=== PATIENT | male | born 1940 | race Caucasian/White ===

== ENCOUNTER 2024-11-14 15:03 | Emergency (ER) | payer MEDICARE, SELFPAY ==
[2024-11-14] VITALS (7 sets, daily range): BP systolic 102–132; BP diastolic 57–70; PULSE 65–82; RESP 16–18; TEMP 36.5–36.6; O2SAT 95–98; BMI 29.1
--- NOTE | 2024-11-14 15:10 | ECG_ITS ---
APPROVED REPORT Exam: Resting ECG HR:86 bpm ECG Measurements Heart Rate 86 AXES ID 225 P 96 QRSd 98 QRS -46 QT 410 T 31 QTc 454 Conclusion ELECTRONIC ATRIAL PACEMAKER LEFT AXIS DEVIATION [QRS AXIS < -30] ANTEROSEPTAL MYOCARDIAL INFARCTION , OF INDETERMINATE AGE [40+ ms Q WAVE IN V1-V4] No STEMI Electronically signed by : AKUA ALVARADO, 11/15/2024 06:54:59
--- NOTE | 2024-11-14 15:35 | HMH.EDGENADL ---
Discharge Plan Disposition Chief Complaint: Dizziness Referrals Follow up/Referrals: Patrizia Franco DO [Primary Care Provider] - See instructions Activity Restrictions/Add. Instructions Additional Instructions/Restrictions: At this time it was felt you are safe to be discharged home. If new or worsening symptoms please do not hesitate to return the emergency department. Please continue to follow-up with your family doctor as discussed. It was not thought today that you were having a big stroke in the back your brain which is good news. Clinical Impressions Clinical Impression: Vertigo Print Language Print Language: [place] Discharge ED Provider: Cristhian Briones General Adult HPI General Chief complaint: Dizziness Stated complaint: Dizziness and Confusion Time Seen by Provider: 11/14/24 15:26 Mode of Arrival: Ambulatory Source of Information: Patient and Spouse Description of Symptoms (Recalled from ER Triage Doc. by RN): Pt states during lunch he began to feel dizzy and confused, this occurred 1 hour [employer]IT[employer] DIRECT[employer] (1420) Pt states he had to brace himself against the car and bumped his head on the car. Pt is on xarelto but did not have LOC. Pt states he has a hx of vertigo, and has been having changes to his heart medications. Pt is on xarelto. FSBS 150, pt is gcs 15 History of Present Illness HPI narrative: Patient is a 84-year-old male with past medical history of [id number] diabetes, hyperlipidemia, vitamin D deficiency, COPD, mood disorder, atrial paced on rivaroxaban, metoprolol, Lasix who presents emergency department for evaluation dizziness. Patient has had dizziness over the last 2 years and PCP recently took him off of some of his spironolactone and Jardiance last week and has had some improvement of his symptoms however he thinks he took his medication this morning inadvertently out of habit and had resurgence of his dizziness. He was shopping when he collapsed in the bathroom, denies hitting his head or true loss of consciousness rather it was from weakness and he presents here for continued evaluation. Patient is complaining of dizziness and nausea no reports of chest pain, no other acute complaints at this time. Please note that above description of symptoms, in this electronic medical record under categorization of recalled from ER triage doctor by RN are reflective of an initial nursing assessment, however, is not reflective of my full history and physical exam that was personally taken and clarified. Consequentially, this preceding description of symptoms, which may include the patient's categorized chief complaint in the EMR, do not reflect my personal clinical impression, and the ultimate description of history of present illness and patient stated complaints should be deferred to this section of the note. Unless stated otherwise or congruent with this section of the note, additional signs, symptoms, or incongruence should be interpreted as inaccurate with my clinical impression. Related Data Allergies Allergy/AdvReac Type Severity Reaction Status Date / Time gabapentin Allergy Verified 11/14/24 17:49 hydromorphone Allergy Verified 11/14/24 17:49 melatonin Allergy Verified 11/14/24 17:49 meloxicam Allergy Verified 11/14/24 17:49 PFSH [facility] Disclaimer: The information contained in this section may have been updated after the patient was seen, as this information can be updated by other users. Social History Smoking Status: Former smoker alcohol intake: never current occupational status: other Travel in the last 8 weeks?: None ROS Obtained: Yes Systems reviewed as appropriate & no additional complaints except as documented Physical Exam General General appearance: alert and in no apparent distress Head Head exam: atraumatic and normocephalic Eye Eye exam: Present PERRL and EOMI ENT ENT exam: Present mucous membranes moist Neck Neck exam: Present normal inspection Chest Chest inspection: Present normal inspection and symmetric chest wall rise Respiratory Respiratory exam: Present normal lung sounds bilaterally; Absent respiratory distress Cardiovascular Cardiovascular exam: Present regular rate and normal rhythm Abdominal Exam Abdominal exam: Present soft; Absent tenderness Extremities Exam Extremities exam: Present normal inspection Neurological Exam Neurological exam: Present alert, oriented X3 and CN II-XII intact; Absent motor sensory deficit Psychiatric Psychiatric exam: Present normal affect Skin Skin exam: Present warm and dry Medical Decision Making Medical Records Screening: Per USPSTF and CDC recommendations, given the prevalence of disease in our region, it is our hospital?s policy to screen for HIV and viral Hepatitis for all patients aged 18 and over and those with ongoing risk factors. Efrain Inquiry Pt receiving controlled substance: No Vital Signs: 11/14/24 15:17 11/14/24 15:19 11/14/24 15:30 Temperature 97.7 F Temperature Source Oral Pulse Rate 82 75 Pulse Rate [Right] 77 Respiratory Rate 18 Blood Pressure 109/68 L 112/61 Blood Pressure [Right Arm] 102/57 L Blood Pressure Mean Blood Pressure Mean [Right Arm] 72 Blood Pressure Source [Right Arm] Automatic Cuff Blood Pressure Position [Right Arm] Sitting 02 Sat by Pulse Oximetry 95 98 96 Oxygen Delivery Method Room Air Room Air Room Air 11/14/24 16:00 11/14/24 16:30 11/14/24 17:00 Temperature Temperature Source Pulse Rate 78 70 65 Pulse Rate [Right] Respiratory Rate 18 18 Blood Pressure 115/64 125/69 122/66 Blood Pressure [Right Arm] Blood Pressure Mean 83 86 Blood Pressure Mean [Right Arm] Blood Pressure Source [Right Arm] Blood Pressure Position [Right Arm] 02 Sat by Pulse Oximetry 96 95 95 Oxygen Delivery Method Room Air Lab Data Lab Results 11/14/24 15:20: WBC 7.8, RBC 4.48 L, Hgb 14.4, Hct 42.1, MCV 94.0, MCH 32.1 H, MCHC 34.2, RDW 12.5, Plt Count 171, MPV 12.3 H, Neut % (Auto) 68.7, Lymph % (Auto) 20.4, [place] % (Auto) 8.0, Eos % (Auto) 2.3, Baso % (Auto) 0.3, Neut # (Auto) 5.3, Lymph # (Auto) 1.6, [place] # (Auto) 0.6, Eos # (Auto) 0.2, Baso # (Auto) 0.0, Sodium 137, Potassium 3.6, Chloride 109 H, Carbon Dioxide 23, Anion Gap 8.6, BUN 19, Creatinine 1.30 H, Estimated Creat Clear 56, Estimated GFR 52 L, Est GFR ( Amer) 63, Glucose 152 H, Calcium 9.2, Magnesium 1.8, Total Bilirubin 0.7, AST 36, ALT 26, Alkaline Phosphatase 98, Total Protein 6.7, Albumin 4.1, Globulin 2.6, Albumin/Globulin Ratio 1.6 11/14/24 15:20 11/14/24 15:20 Orders (Tests/Meds): ED MEDICATIONS Discontinued Medications Generic Name Dose Route Start Last Admin Trade Name Freq PRN Reason Stop Dose Admin Iopamidol 80 ml 11/14/24 17:26 11/14/24 17:27 Iopamidol-370 (76%);100ml Bottle IV 11/14/24 17:27 80 ml ONCE ONE Administration Sodium Chloride 50 ml 11/14/24 17:26 11/14/24 17:26 0.9 % Sodium Chloride 50 Ml Vial IV 11/14/24 17:27 50 ml ONCE ONE Administration Sodium Chloride 10 ml 11/14/24 17:26 11/14/24 17:26 Sodium Chloride 0.9% 10ml Syr (Rad Only) IV 11/14/24 17:27 10 ml ONCE ONE Administration ORDERS Category Date Time Status CT angio head Stat Cat Scan 11/14/24 15:[address] angio neck Stat Cat Scan 11/14/24 15:[address] head/brain wo con Stat Cat Scan 11/14/24 15:48 Completed CBC w/Auto Diff [Complete Blood Count Auto Diff] Stat Lab 11/14/24 15:20 Completed CMP [Comprehensive Metabolic Panel] Stat Lab 11/14/24 15:20 Completed MG [Magnesium] Stat Lab 11/14/24 15:20 Completed ECG Data Tracing #1: Independently inter by me rate is 86, rhythm is atrial paced, no ST elevation in anatomical contiguous leads, QTc 454. Medical Decision Narrative: In summary patient is a 84-year-old male with past medical history described below who presents emergency department for evaluation of acute on chronic vertigo. Patient is hemodynamically stable nontoxic-appearing upon arrival, afebrile. Nonfocal neurologic exam differential diagnosis includes posterior circulation stroke, electrolyte abnormality, chronic vertigo, medication side effect, among others. Workup we conducted with hematologic labs, noncontrasted CT scan of the head, CT of the head and neck, EKG. Initial workup reviewed by me, hematologic labs are nonactionable no significant leukocytosis or anemia no IRAJ although mildly elevated creatinine no critical electrolyte abnormality. Noncontrasted CT scan of the head informally visualized by me no acute large intracranial hemorrhage. Formal read shows mild bilateral ICA stenosis. Given the chronicity of his vertigo and that it is similar nature and the fact that patient is ambulatory I significantly doubt posterior circulation stroke. Given this patient is appropriate for discharge at this time will continue to follow-up on an outpatient basis with his family doctor. Critical Care Critical Care Time Critical Care Time: No
--- NOTE | 2024-11-14 15:48 | CT_ITS ---
PROCEDURE INFORMATION: Exam: CTA Head With Contrast, Arteriography Exam date and time: 11/14/2024 5:40 PM Age: 84 years old Clinical indication: Other: Vertigo collapse and vertigo TECHNIQUE: Imaging protocol: Computed tomographic angiography of the head with contrast. Exam focused on the arteries. 3D rendering (Not supervised by radiologist): MIP and/or 3D reconstructed images were created by the technologist. Radiation optimization: All CT scans at this facility use at least one of these dose optimization techniques: automated exposure control; mA and/or kV adjustment per patient size (includes targeted exams where dose is matched to clinical indication); or iterative reconstruction. Contrast material: ISO 370; Contrast volume: 80 ml; Contrast route: INTRAVENOUS (IV); COMPARISON: CT HEAD/BRAIN WO CON 11/14/2024 5:38 PM FINDINGS: ANTERIOR CIRCULATION: Right internal carotid artery: Mild atherosclerotic narrowing of the intracranial segment without flow-limiting stenosis. No aneurysm. Right middle cerebral artery: No occlusion or significant stenosis. No aneurysm. Right anterior cerebral artery: No occlusion or significant stenosis. No aneurysm. Left internal carotid artery: Mild atherosclerotic narrowing of the intracranial segment without flow-limiting stenosis. No aneurysm. Left middle cerebral artery: No occlusion or significant stenosis. No aneurysm. Left anterior cerebral artery: No occlusion or significant stenosis. No aneurysm. POSTERIOR CIRCULATION: Right vertebral artery: No occlusion or significant stenosis. No aneurysm. Left vertebral artery: No occlusion or significant stenosis. No aneurysm. Basilar artery: No occlusion or significant stenosis. No aneurysm. Right posterior cerebral artery: origin. No occlusion or significant stenosis. No aneurysm. Left posterior cerebral artery: No occlusion or significant stenosis. No aneurysm. Brain: No definite mass, mass effect, or midline shift. Cerebral ventricles: No ventriculomegaly. Bones/joints: Unremarkable. No acute fracture. Soft tissues: Unremarkable. IMPRESSION: No large vessel stenosis or occlusion. PROCEDURE INFORMATION: Exam: CTA Neck With Contrast Exam date and time: 11/14/2024 5:40 PM Age: 84 years old Clinical indication: Other: Vertigo collapse and vertigo TECHNIQUE: Imaging protocol: Computed tomographic angiography of the neck with contrast. Exam focused on the cervical segments of the vasculature. 3D rendering (Not supervised by radiologist): MIP and/or 3D reconstructed images were created by the technologist. Radiation optimization: All CT scans at this facility use at least one of these dose optimization techniques: automated exposure control; mA and/or kV adjustment per patient size (includes targeted exams where dose is matched to clinical indication); or iterative reconstruction. Contrast material: ISO 370; Contrast volume: 80 ml; Contrast route: INTRAVENOUS (IV); COMPARISON: CT HEAD/BRAIN WO CON 11/14/2024 5:38 PM FINDINGS: Right common carotid artery: Mild atherosclerosis at the carotid bulb without significant stenosis. No dissection or occlusion. Right internal carotid artery: Mild stenosis at the origin. No dissection or occlusion. Right external carotid artery: No occlusion or stenosis of the origin. Left common carotid artery: Mild atherosclerosis at the carotid bulb without significant stenosis. No dissection or occlusion. Left internal carotid artery: Mild stenosis at the origin. No dissection or occlusion. Left external carotid artery: Mild atherosclerosis of the origin without significant stenosis. Right vertebral artery: No stenosis. No dissection or occlusion. Left vertebral artery: No stenosis. No dissection or occlusion. Lymph nodes: Calcified mediastinal lymph nodes. Soft tissues: Normal. No significant soft tissue swelling. Bones/joints: No acute fracture. C3-T1 posterior cervical fusion. Lungs: Atelectasis. Left lung granulomatous scarring. Calcified granulomas. IMPRESSION: Mild bilateral internal carotid artery origin stenosis. REFERENCES: NASCET CRITERIA. The degree of stenosis in the cervical segment of the internal carotid artery is based on NASCET criteria. Normal is no stenosis. Mild is less than 50% stenosis. Moderate is 50-69% stenosis. Severe is 70% to 99% stenosis. Total occlusion is no detectable patent lumen.
--- NOTE | 2024-11-14 15:48 | CT_ITS ---
PROCEDURE INFORMATION: Exam: CT Head Without Contrast Exam date and time: 11/14/2024 5:38 PM Age: 84 years old Clinical indication: Other: Vertigo collapse TECHNIQUE: Imaging protocol: Computed tomography of the head without contrast. Radiation optimization: All CT scans at this facility use at least one of these dose optimization techniques: automated exposure control; mA and/or kV adjustment per patient size (includes targeted exams where dose is matched to clinical indication); or iterative reconstruction. COMPARISON: No relevant prior studies available. FINDINGS: Brain: No acute intracranial hemorrhage, midline shift, or mass effect. Diffuse brain parenchymal volume loss. Mild hypodensities within the cerebral white matter most consistent with chronic small-vessel ischemic changes. Cerebral ventricles: No ventriculomegaly. Paranasal sinuses: Mild ethmoid sinus mucosal thickening. Small right maxillary sinus mucous retention cyst. Mastoid air cells: Visualized mastoid air cells are well aerated. Bones: Unremarkable. No acute fracture. Soft tissues: Unremarkable. IMPRESSION: No acute intracranial findings.
[2024-11-14 15:56] LABS: Basophils % 0.3 % (0.1-2.0); Eosinophils # 0.2 Kmm3 (0.0-0.4); Eosinophils % 2.3 % (0.1-12.0); Hematocrit 42.1 % (42.0-52.0); Hemoglobin 14.4 g/dL (14.1-18.0); Immature Granulocytes # 0.02 10^3uL; Immature Granulocytes % 0.3 %; Lymphocytes # 1.6 K/mm3 (0.7-4.5); Lymphocytes % 20.4 % (10-50); Mean Corpuscular HGB Conc 34.2 g/dL (31.8-35.4); Mean Corpuscular Hemoglobin 32.1 pg (27.0-31.2); Mean Platelet Volume 12.3 fl (7.4-10.4); Monocytes # 0.6 K/mm3 (0.1-1.0); Neutrophils # 5.3 K/mm3 (1.8-7.8); Neutrophils % 68.7 % (37.0-80.0); Nucleated Red Blood Cells # 0 10^3/uL; Nucleated Red Blood Cells % 0 %; Platelet Count 171 K/mm3 (142-424); Red Blood Count 4.48 M/mm3 (4.60-6.20); Red Cell Distribution Width 12.5 % (11.5-17.5); Red Cell Distribution Width-SD 43.5 fL; White Blood Count 7.8 K/mm3 (4.8-10.8)
[2024-11-14 15:59] LABS: Albumin Level 4.1 g/dl (3.5-5.0); Chloride 109 mmol/L (98-107); Potassium 3.6 mmoL/L (3.5-5.1); Sodium 137 mmol/L (136-145)
[2024-11-14 16:02] LABS: Alanine Aminotransferase 26 U/L (12-78); Albumin/Globulin Ratio 1.6 (1.1-1.8); Alkaline Phosphatase 98 U/L (38-126); Anion Gap 8.6 mEq/L (5-15); Aspartate Amino Transferase 36 U/L (17-59); Bilirubin,Total 0.7 mg/dl (0.2-1.3); Blood Urea Nitrogen 19 mg/dl (9-20); Calcium 9.2 mg/dl (8.4-10.2); Carbon Dioxide 23 mmol/L (22.0-30.0); Creatinine Clearance Estimated 56 mL/min (50-200); Estimated Glomerular Filt Rate 52 ml/min (>60); GFR (African American) 63 ML/MIN (>60); Globulin 2.6 g/dL (1.3-3.2); Glucose 152 mg/dl (74-100); Magnesium 1.8 mg/dl (1.6-2.3); Total Protein,Serum 6.7 g/dl (6.3-8.2)
[2024-11-14] MEDS: SODIUM CHLORIDE 0.9% 10ML SYR (RAD ONLY) 10 ML IV (17:26)
[2024-11-14] MEDS: 0.9 % SODIUM CHLORIDE 50 ML VIAL IV (17:26)
[2024-11-14] MEDS: IOPAMIDOL-370 (76%);100ML BOTTLE 80 ML IV (17:27)
== END 2024-11-14 19:19 | disposition home or self-care (01) ==
LOC: ER 15:45
PROVIDERS: Emergency Provider Emergency Medicine; PCP Student in an Organized Health Care Education/Training Program
DX: R42 Dizziness and giddiness (principal); J44.9 Chronic obstructive pulmonary disease, unspecified; E11.9 Type 2 diabetes mellitus without complications; E78.5 Hyperlipidemia, unspecified; Z79.01 Long term (current) use of anticoagulants; Z95.0 Presence of cardiac pacemaker
CPT/HCPCS: 70450; 70496; 70498; 80053; 83735; 85025; 93005; 99285; Q9967